=== PATIENT | female | born 1995 | race Hispanic/Latino ===

== ENCOUNTER 2018-08-08 21:04 | Emergency (ER) | payer MEDICAID, OTHER ==
[~2018-08-08 21:04] MED LIST: PNV1TABL17 PO
== END 2018-08-08 22:42 | disposition home or self-care (01) ==
LOC: EDH 21:04
DX: N61.0 Mastitis without abscess (principal); J45.909 Unspecified asthma, uncomplicated; F41.9 Anxiety disorder, unspecified; Z98.51 Tubal ligation status; Z88.8 Allergy status to other drugs, medicaments and biological substances